=== PATIENT | female | born 1945 | race Caucasian/White ===

== ENCOUNTER 2023-01-26 15:06 | Emergency (ER) | payer MEDICARE, OTHER ==
[2023-01-26 16:33] VITALS: BP 148/72; PULSE 98; RESP 16; O2SAT 98
[2023-01-26] MEDS ORDERED: ACETAMINOPHEN 500 MG TAB PO ONE (16:45)
[2023-01-26 17:07] VITALS: TEMP 98.4
[2023-01-26] MEDS ORDERED: MELO7.5T7 PO (17:32)
[2023-01-26] MEDS ORDERED: TRAM50TA2 PO (17:32)
== END 2023-01-26 17:38 | disposition home or self-care (01) ==
LOC: ER 15:06 → EDBD 15:06 → ER 17:38
DX: S83.8X2A Sprain of other specified parts of left knee, initial encounter (principal); S29.012A Strain of muscle and tendon of back wall of thorax, initial encounter; M17.12 Unilateral primary osteoarthritis, left knee; M51.34 Other intervertebral disc degeneration, thoracic region; E78.5 Hyperlipidemia, unspecified; V43.52XA Car driver injured in collision with other type car in traffic accident, initial encounter; Y93.89 Activity, other specified; Y92.488 Other paved roadways as the place of occurrence of the external cause; Y99.8 Other external cause status
CPT/HCPCS: 72070; 73562

== ENCOUNTER 2024-12-13 19:14 | Inpatient (IN) | payer OTHER ==
[~2024-12-13] VITALS: Ht 160 cm; Wt 81.3 kg
[~2024-12-13 19:14] MED LIST: HYDR-4902 PO; MELO7.5T7 PO; TRAM50TA2 PO
--- NOTE | 2024-12-13 20:22 | ED.PDOC ---
Musculoskeletal HPI Comments 79 y/o obese F, with a history of arthritis - on Gabapentin, presents with c/c of bilateral lower leg swelling and rash, with associated redness, itchiness, and mild pain. Swelling is reported to be ongoing for 2x weeks, with remaining symptoms ensuing, yesterday. Denial of any further acute symptoms. No reported recent exposure to any known allergens. No recent ailments, sick contact, injuries, or additional pertinent medical, surgical, social, or family history. Chief Complaint: Lower Extremity Time Seen by MD: 19:45 Reviewed Notes: Nurses Notes, Medications, Allergies Allergies: Coded Allergies: Codeine (Verified Allergy, Unknown, 06/01/23) Sulfa Antibiotics (Verified Allergy, Unknown, 06/01/23) Home Meds Active Scripts Hydrocodone-Acetaminophen (Hydrocodone Bitartrate/AC 5-325 mg) 1 Tab Tab, 1 TAB PO Q6HPRN PRN, #15 TAB Prov:OLINDA AMEZCUA PAC 06/01/23 Tramadol Hcl (Tramadol Hcl) 50 Mg Tab, 50 MG PO BID, #20 TAB Prov:SADIA STACY 01/26/23 Meloxicam (Meloxicam) 7.5 Mg Tab, 1 TAB PO BID, #30 TAB 1 Refill Prov:SADIA STACY 01/26/23 Information Source: Patient Mode of Arrival: Ambulatory Location: Bilateral Past Medical History PAST MEDICAL HISTORY: Arthritis, High Lipids Surgical History: Denies all surgeries RN REGISTRY History: No Pertinent RN REGISTRY History Family History Family History: Reviewed,noncontributory to illness Social History Smoker: Non-Smoker Alcohol: Denies ETOH Use Drugs: Denies Drug Use Lives In: Home All Other Systems: Reviewed and Negative (Comprehensive systems review obtained and negative except for what is stated in the HPI.) Physical Exam General Appearance: Moderate Distress HEENT: Normal ENT Inspection, Pharynx Normal, TMs Normal Neck: Full Range of Motion, Non-Tender, Normal, Normal Inspection Respiratory: Chest Non-Tender, Lungs Clear, No Accessory Muscle Use, No Respiratory Distress, Normal Breath Sounds Cardiovascular: No Edema, No JVD, No Murmur, No Gallop, Normal Peripheral Pulses, Regular Rate/Rhythm Breast Exam: Deferred Gastrointestinal: No Organomegaly, Non Tender, No Pulsatile Mass, Normal Bowel Sounds, Soft Genitalia: Deferred Pelvic: Deferred Rectal: Deferred Extremities: No calf tenderness, Normal capillary refill, Normal range of motion, Non-tender, No pedal edema, Swelling (Bilateral lower extremity) Musculoskeletal : Apperance: Normal Neurologic: Alert, dag sprayer II-XII nml as Tested, No Motor Deficits, Normal Affect, Normal Mood, No Sensory Deficits Cerebellar Function: NOT DONE Reflexes: NOT DONE Skin: Dry, Normal Color, Warm Peripheral Pulses: 3+ Radial (R), 3+ Radial (L) Lymphatic: No Adenopathy Was a procedure done? Was a procedure done?: No Differential Diagnosis EXT Differential Diagnosis: Cellulitis, CHF, Deep Vein Thrombosis, Sprain, Gout, Strain, Rheumatoid, Neurovascular injury, Arthritis X-Ray, Labs, Meds, VS Vital Signs Date Time Temp Pulse Resp B/P (MAP) Pulse Ox O2 Delivery O2 Flow Rate FiO2 12/14/24 01:00 98.3 74 12 149/74 (99) 97 98.3 12/13/24 21:39 83 16 97 Room Air* 0 21 12/13/24 21:39 98.7 83 16 141/96 (111) 97 98.7 12/13/24 19:24 99.0 84 20 133/96 95 99.0 Lab Test 12/13/24 21:17 Range/Units White Blood Count 4.8 4.4-10.8 10^3/uL Red Blood Count 4.32 4.0-5.20 10^6/uL Hemoglobin 11.8 L 12.2-16.2 g/dL Hematocrit 36.4 36.0-46.0 % Mean Corpuscular Volume 84.3 80.0-100.0 fL Mean Corpuscular Hemoglobin 27.4 L 28.0-32.0 pg Mean Corpuscular Hemoglobin Concent 32.5 32.0-36.0 g/dL Red Cell Distribution Width 15.5 H 11.8-14.3 % Platelet Count 177 140-450 10^3/uL Mean Platelet Volume 8.5 6.9-10.8 fL Neutrophils (%) (Auto) 67.9 37.0-80.0 % Lymphocytes (%) (Auto) 19.1 10.0-50.0 % Monocytes (%) (Auto) 6.3 0.0-12.0 % Eosinophils (%) (Auto) 6.3 0.0-7.0 % Basophils (%) (Auto) 0.4 0.0-2.0 % Neutrophils # (Auto) 3.3 1.6-8.6 10 ^3/uL Lymphocytes # (Auto) 0.9 0.4-5.4 10 ^3/uL Monocytes # (Auto) 0.3 0-1.3 10 ^3/uL Eosinophils # (Auto) 0.3 0-0.8 10 ^3/uL Basophils # (Auto) 0 0-0.2 10 ^3/uL Nucleated Red Blood Cells 0.0 % Sodium Level 144 136-145 mmol/L Potassium Level 4.6 3.5-5.1 mmol/L Chloride Level 108 H 98-107 mmol/L Carbon Dioxide Level 26 20-31 mmol/L Anion Gap 10 5-15 Blood Urea Nitrogen 25 H 9-23 mg/dL Creatinine 1.40 H 0.550-1.02 mg/dL Glomerular Filtration Rate Calc 38 >90 mL/min BUN/Creatinine Ratio 17.9 10.0-20.0 Serum Glucose 85 74-106 mg/dL Calcium Level 9.0 8.7-10.4 mg/dL Current Medications Medications (Trade) Dose Ordered Sig/Shelton Route Start Time Stop Time Status Last Admin Ceftriaxone Sodium 50 ml @ 100 mls/hr ONCE ONCE IV 12/13/24 20:30 12/13/24 20:59 DC 12/13/24 22:01 Clindamycin Phosphate 50 ml @ 50 mls/hr ONCE ONCE IV 12/13/24 20:30 12/13/24 21:29 DC 12/13/24 22:52 [place] [id number] Ph: [phone] DIAGNOSTIC IMAGING Diagnostic Imaging Report : [id number] Signed PATIENT: TAMIA CRAIG ACCT: [id number] UNIT: [id number] : 1945 LOC: ER ROOM / BED: / AGE / SEX: 79 / F ADM STATUS: REG ER SERVICE 27 ORDERING PHYSICIAN: LOYD BROOKS MD PROCEDURE(s): BLDVT - BiLat Lower DVT REASON: dvt ORDER NUMBER(s): [id number], ACCESSION NUMBER(s): [id number] Procedure: US BiLat Lower DVT Study Date and Requested Time: 12/13/2024 08:55 PM History: dvt Comparison: None Technique: Multiple high resolution rendon-scale images with and without compression obtained of the bilateral lower extremity veins, including the common femoral vein, deep femoral vein, proximal mid and distal superficial fem oral vein, and popliteal vein. Additional limited images of the greater saphenous vein also obtained. Augmentation performed as indicated. Color and spectral doppler flow images obtained as indicated. Findings: No visible intraluminal venous thrombus. No evidence of incompressibility or abnormal color or spectral Doppler flow visualized in the bilateral lower extremity veins including, the common femoral vein, deep femoral vein, proximal mid and distal superficial femoral vein, and popliteal vein. Greater saphenous vein grossly unremarkable. Impression: No sonographic evidence of bilateral lower extremity deep venous thrombosis. ATED BY: RADHA HOLLINS DO DICTATED DATE/TIME: 12/13/242129 SIGNED BY: RADHA HOLLINS DO SIGNED DATE/TIME: 12/13/242129 CC: Patient alert. Vitals stable. Came in because of bilateral lower extremity swelling along with redness. Ambulating. Blood pressure slightly elevated. WBC within normal limits. Cellulitis. Establish intravenous access. Was given Rocephin. Was given clindamycin. Explained to the patient. Continue monitoring. Time of 1ST Reevaluation: 20:15 Reevaluation 1ST: Unchanged Patient Education/Counseling: Diagnosis, Treatment Family Education/Counseling: No Family Present Departure 1 Departure Time of Disposition: 23:26 Impression: Primary Impression: Cellulitis Qualified Codes: L03.119 - Cellulitis of unspecified part of limb Disposition: ADMITTED INPATIENT Admit to: Med Surg Condition: Guarded Critical Care Note Critical Care Time?: No Stability Stability form required: No Heart Score Heart Score: Heart Score Response (Comments) Value History N/A 0 EKG N/A 0 Age N/A 0 Risk Factors N/A 0 Troponin N/A 0 Total 0 I personally scribed for LOYD BROOKS MD ([email or web address]) on 12/13/24 at 20:22. Electronically submitted by Stiven Ulloa ([email or web address]). I personally scribed for LOYD BROOKS MD ([email or web address]) on 12/14/24 at 02:43. Electronically submitted by Stiven Ulloa ([email or web address]). LOYD BROOKS MD Dec 13, 2024 20:22
--- NOTE | 2024-12-13 21:32 | DVH ---
Procedure: US BiLat Lower DVT Study Date and Requested Time: 12/13/2024 08:55 PM History: dvt Comparison: None Technique: Multiple high resolution rendon-scale images with and without compression obtained of the bi lateral lower extremity veins, including the common femoral vein, deep femoral vein, proximal mid and distal superficial femoral vein, and popliteal vein. Additional limited images of the greater saphen ous vein also obtained. Augmentation performed as indicated. Color and spectral doppler flow images o btained as indicated. Findings: No visible intraluminal venous thrombus. No evidence of incompressibility or abnormal color or spectr al Doppler flow visualized in the bilateral lower extremity veins including, the common femoral vein, deep femoral vein, proximal mid and distal superficial femoral vein, and popliteal vein. Greater sap henous vein grossly unremarkable. Impression: No sonographic evidence of bilateral lower extremity deep venous thrombosis.
[2024-12-13 21:39] VITALS: PULSE 83; RESP 16; O2SAT 97
[2024-12-13 21:47] LABS: Hematocrit 36.4 % (36.0-46.0); Hemoglobin 11.8 g/dL (12.2-16.2); Mean Corpuscular Hemoglobin 27.4 pg (28.0-32.0); Mean Corpuscular Volume 84.3 fL (80.0-100.0); Nucleated Red Blood Cells % 0.0 %
[2024-12-13 21:50] LABS: Potassium 4.6 mmol/L (3.5-5.1); Sodium 144 mmol/L (136-145)
[2024-12-13 21:51] LABS: Anion Gap 10 (5-15); Calcium 9.0 mg/dL (8.7-10.4); Carbon Dioxide 26 mmol/L (20-31)
[2024-12-13 21:52] LABS: Chloride 108 mmol/L (98-107)
[2024-12-13 21:56] LABS: BUN/Creatinine Ratio 17.9 (10.0-20.0); Blood Urea Nitrogen 25 mg/dL (9-23); Glucose 85 mg/dL (74-106)
[2024-12-13] MEDS: CLINDAMYCIN 300MG IV 50 ML IV ONE (22:52)
[2024-12-14] VITALS (8 sets, daily range): BP systolic 104–160; BP diastolic 55–78; PULSE 69–98; RESP 13–20; TEMP 97.5–98.4; O2SAT 96–99
[2024-12-14] MEDS ORDERED: MORPHINE SULFATE INJ 2 MG/ml SYRG IV PRN ×2 (03:45→04:00)
[2024-12-14] MEDS ORDERED: ACETAMINOPHEN 325 MG TAB PO PRN (03:45)
--- NOTE | 2024-12-14 03:57 | DVHHPRES ---
History of Present Illness Resident Creating Document: REJI VANCE History of Present Illness Shaniqua Recio this is a 79-year-old female patient who presents to ED with chief complaint of bilateral lower limb itchiness (right greater than left) which started approximately 48 hours ago. Patient also reports bilateral lower limb extremity swelling and hardening for the past two weeks which improves while lying flat associated with intermittent dyspnea in variable functional class. Denies any other associated symptoms, including chest pain, palpitation and syncope. Past medical history: Bilateral lower limb polyneuropathy Surgical history: Bilateral knee surgery, cholecystectomy, left femur paolo placement Family history: Heart disease in father Social history: Lives in [place] with a friend (has no next of kin). Denies current tobacco, alcohol and other drug abuse Allergies: Codeine and sulfa antibiotics Home medication: Gabapentin Patient seen and examined at bedside. Currently still presents intense pruritus in lower limbs especially right side. Patient admitted for further management. Past Medical History Per HPI Past Surgical History Per HPI Family History Per HPI Past Social History Per HPI Review of Systems Review of Systems Per HPI Allergies: Coded Allergies: Codeine (Verified Allergy, Unknown, 06/01/23) Sulfa Antibiotics (Verified Allergy, Unknown, 06/01/23) Exam Vital Signs Vital Signs Date Time Temp Pulse Resp B/P (MAP) Pulse Ox O2 Delivery O2 Flow Rate FiO2 12/14/24 01:00 98.3 74 12 149/74 (99) 97 98.3 12/13/24 21:39 Room Air* 0 21 Exam Patient lying in bed, in mild acute distress General: Lucid, afebrile, mucosae are moist Cardiovascular: Normal S1 and S2. Systolic early peaking crescendo decrescendo murmur best heard in aortic foci intensity 2/6. No gallops or rubs Respiratory: Normal ventilation mechanics. Clear lung sounds on auscultation Abdomen: Soft, nontender, no organomegaly, normal bowel sounds MSK/skin: Mobilizes 4 limbs. Skin is dry and warm. Bilateral infrapatellar pitting edema right greater than left, associated with erythema and excoriations in bilateral legs. Neurological: Oriented in 3 spheres. No motor no sensitive deficits. Pupils are isocoric and reactive Labs/Xrays Labs Test 12/13/24 21:17 Range/Units White Blood Count 4.8 4.4-10.8 10^3/uL Red Blood Count 4.32 4.0-5.20 10^6/uL Hemoglobin 11.8 L 12.2-16.2 g/dL Hematocrit 36.4 36.0-46.0 % Mean Corpuscular Volume 84.3 80.0-100.0 fL Mean Corpuscular Hemoglobin 27.4 L 28.0-32.0 pg Mean Corpuscular Hemoglobin Concent 32.5 32.0-36.0 g/dL Red Cell Distribution Width 15.5 H 11.8-14.3 % Platelet Count 177 140-450 10^3/uL Mean Platelet Volume 8.5 6.9-10.8 fL Neutrophils (%) (Auto) 67.9 37.0-80.0 % Lymphocytes (%) (Auto) 19.1 10.0-50.0 % Monocytes (%) (Auto) 6.3 0.0-12.0 % Eosinophils (%) (Auto) 6.3 0.0-7.0 % Basophils (%) (Auto) 0.4 0.0-2.0 % Neutrophils # (Auto) 3.3 1.6-8.6 10 ^3/uL Lymphocytes # (Auto) 0.9 0.4-5.4 10 ^3/uL Monocytes # (Auto) 0.3 0-1.3 10 ^3/uL Eosinophils # (Auto) 0.3 0-0.8 10 ^3/uL Basophils # (Auto) 0 0-0.2 10 ^3/uL Nucleated Red Blood Cells 0.0 % Sodium Level 144 136-145 mmol/L Potassium Level 4.6 3.5-5.1 mmol/L Chloride Level 108 H 98-107 mmol/L Carbon Dioxide Level 26 20-31 mmol/L Anion Gap 10 5-15 Blood Urea Nitrogen 25 H 9-23 mg/dL Creatinine 1.40 H 0.550-1.02 mg/dL Glomerular Filtration Rate Calc 38 >90 mL/min BUN/Creatinine Ratio 17.9 10.0-20.0 Serum Glucose 85 74-106 mg/dL Calcium Level 9.0 8.7-10.4 mg/dL SEPSIS Sepsis Screen Date sepsis recognized/suspect: Dec 13, 2024 Time Sepsis recognized/suspect: 2138 Recent Procedure: No On Antibiotic Therapy: No Respiratory Rate >20: No Heart Rate >90: No Temp<36 C (96.8 F) or >38.3 C: No SBP <90 or MAP <65 mmHG: No New Acute Mental Status Change: No Is the patient on CPAP, BIPAP,: No Physician Orders Bilat Lower Dvt (12/13/24 20:28) Urinalysis (12/13/24 20:28) Admit (12/14/24 03:35) Code Status (12/14/24 03:35) Echo 2d Mode Cardiac Dop (12/14/24 03:35) Oxygen By Nasal Cannula (12/14/24 03:35) Vital Signs Date Time Temp Pulse Resp B/P (MAP) Pulse Ox O2 Delivery O2 Flow Rate FiO2 12/14/24 01:00 98.3 74 12 149/74 (99) 97 98.3 12/13/24 21:39 83 16 97 Room Air* 0 21 12/13/24 21:39 98.7 83 16 141/96 (111) 97 98.7 Laboratory Tests Test 12/13/24 21:17 White Blood Count 4.8 10^3/uL (4.4-10.8) Medications Medications Dose Ordered Sig/Shelton Route Start Time Stop Time Status Last Admin Dose Admin Ceftriaxone Sodium 50 ml @ 100 mls/hr ONCE ONCE IV 12/13/24 20:30 12/13/24 20:59 DC 12/13/24 22:01 100 MLS/HR Clindamycin Phosphate 50 ml @ 50 mls/hr ONCE ONCE IV 12/13/24 20:30 12/13/24 21:29 DC 12/13/24 22:52 50 MLS/HR Assessment/Plan Assessment/Plan ASSESSMENT Bilateral lower limb cellulitis Probable acute on newly diagnosed congestive heart failure (pending LVEF) Probable aortic valvulopathy OJI hemodynamically mediated (VMN) Ruled out DVT Polyneuropathy History of bilateral knee repair PLAN We will admit for med surge to continue IV antibiotics (clindamycin) Due to pruritus indicated Benadryl and methylprednisolone Patient has bilateral limb swelling, ruled out DVT with bilateral lower limb venous ultrasound. Ordered echocardiogram to evaluate aortic valvulopathy and probable newly diagnosed congestive heart failure Indicated 20 mg of IV furosemide. Ordered chest x-ray and BNP Continue gabapentin Goals of care discussed with patient for over 18 minutes: Full code status (patient only wants to be full code as long as she is not in a vegetative state). Discussed plan with Dr. Rodriguez, patient and nurses: Patient will be admitted to [facility]. Currently under empiric IV antibiotic. Managing pruritus with Benad ryl and methylprednisolone. Ordered echocardiogram and BNP to evaluate probable newly diagnosed heart failure with associated aortic valvulopathy. Plan discussed with: Patient, Other (Nurses) My Orders Orders - REJI VANCE RESIDENT Procedure Category Date Status Time Admit ADMIT 12/14/24 Transmitted 03:35 Code Status CODE 12/14/24 Transmitted 03:35 Echo 2d Mode Cardiac US 12/14/24 Logged DOP 03:35 Oxygen By Nasal RT 12/14/24 Transmitted Cannula 03:35 Date of Service: Dec 14, 2024 Billing Provider: MARVIN RODRIGUEZ MD Common Visit Codes: 38219-[id number] INP/OBS CARE (HIGH) Secondary Visit Codes: 95140-HJMTPHQX CARE PLAN 30 MINUTES REJI VANCE RESIDENT Dec 14, 2024 03:57
--- NOTE | 2024-12-14 04:39 | DVH ---
CHEST RADIOGRAPH Indication: aORTIC VALVULOPATHY Technique: Single frontal view of the chest was obtained COMPARISON: None FINDINGS: Lines and Tubes: None Lungs: Clear Pleura: No effusion. No pneumothorax. Cardiomediastinal contours: Cardiomegaly. Bones: Unremarkable IMPRESSION: 1. Cardiomegaly.
[2024-12-14] MEDS: diphenhdrAMINE HCL 50 MG/1 ML VL IV PRN (04:43)
[2024-12-14 05:03] LABS: Hematocrit 34.4 % (36.0-46.0); Hemoglobin 11.1 g/dL (12.2-16.2); Mean Corpuscular Hemoglobin 27.3 pg (28.0-32.0); Mean Corpuscular Volume 84.8 fL (80.0-100.0); Nucleated Red Blood Cells % 0.0 %
[2024-12-14 05:14] LABS: INR 0.97 (0.9-1.15); Partial Thromboplastin Time 29.5 SEC (24.5-34.5); Prothrombin Time 10.3 sec (9.3-11.8)
[2024-12-14 05:19] LABS: Alanine Aminotransferase 10 U/L (7-40); Albumin 3.9 g/dL (3.2-4.8); Alkaline Phosphatase 105 U/L (46-116); Anion Gap 11 (5-15); BUN/Creatinine Ratio 16.2 (10.0-20.0); Carbon Dioxide 22 mmol/L (20-31); Glucose 105 mg/dL (74-106); Magnesium 2.1 mg/dL (1.6-2.6); Potassium 4.0 mmol/L (3.5-5.1); Sodium 143 mmol/L (136-145); Total Protein 6.5 g/dL (5.7-8.2)
[2024-12-14] MEDS: FUROSEMIDE 20 MG/2 ML VIAL IV ONE (05:20)
[2024-12-14 05:24] LABS: Bilirubin, Total 0.2 mg/dL (0.2-1.0); Blood Urea Nitrogen 28 mg/dL (9-23); Calcium 8.6 mg/dL (8.7-10.4); Chloride 110 mmol/L (98-107)
[2024-12-14 05:48] LABS: Triglycerides 123 mg/dL (< 150)
[2024-12-14 05:50] LABS: Cholesterol 140 mg/dL (< 200); HDL Cholesterol 59 mg/dL (40-59)
[2024-12-14 05:51] LABS: Bilirubin, Direct < 0.1 mg/dL (<0.3)
[2024-12-14] MEDS ORDERED: CLINDAMYCIN 600MG IV 50 ML IV SCH (06:00)
[2024-12-14] MEDS: CLINDAMYCIN 600MG IV 50 ML IV SCH (06:28)
[2024-12-14 08:20] LABS: Urine Protein, UAD Negative (Negative)
[2024-12-14 08:36] LABS: Amphetamine Screen, Urine Neg (NEGATIVE); Barbiturate Scree,Urine Neg (NEGATIVE); Benzodiazephine Screen, Urine Neg (NEGATIVE); Cannabinoid Screen, Urine Neg (NEGATIVE); Cocaine Screen, Urine Neg (NEGATIVE); Opiate Scree,Urine Neg (NEGATIVE); Phencyclidine Screen, Urine Neg (NEGATIVE)
[2024-12-14] MEDS: FUROSEMIDE 20 MG/2 ML VIAL IV SCH (08:44)
[2024-12-14] MEDS: methylPREDNISolone SOD SUCC 40 MG/ML VL IV SCH (08:44)
[2024-12-14] MEDS: ENOXAPARIN SOD 40 MG/0.4 ML SYRINGE SC SCH (08:45)
[2024-12-14] MEDS ORDERED: GABA-339 PO (09:25)
[2024-12-14] MEDS ORDERED: OXYC325T14 PO (09:25)
[2024-12-14] MEDS ORDERED: ENOXAPARIN SOD 40 MG/0.4 ML SYRINGE SC SCH (10:00)
[2024-12-14] MEDS: MORPHINE SULFATE 4 MG/ML SYR/VIAL IV PRN (17:03)
[2024-12-15 01:00] VITALS: BP 129/94; PULSE 75; RESP 18; TEMP 97.9; O2SAT 97
[2024-12-15 05:00] VITALS: BP 154/88; PULSE 70; RESP 18; TEMP 98.4; O2SAT 96
[2024-12-15 09:00] VITALS: BP 158/80; PULSE 69; RESP 17; TEMP 97.9; O2SAT 96
--- NOTE | 2024-12-15 09:46 | DVH ---
INDICATION: JOI vs CKD TECHNIQUE: Multiple real-time sonographic images of the kidneys and bladder were obtained. COMPARISON: None FINDINGS: The right kidney measures 8 cm in length, which is small in size. There is increased echoge nicity of the right kidney. No hydronephrosis. The left kidney measures 9 cm in length, which is normal in size. There is normal echogenicity of the left kidney. No hydronephrosis. No large intraluminal masses are seen in the bladder. Prior to voiding the bladder volume measures vo lume 265 cc. Incidentally seen splenomegaly. IMPRESSION: Echogenic bilateral kidneys suggestive of chronic medical renal disease. No hydronephrosis.
--- NOTE | 2024-12-15 14:23 | DVHCONRES ---
Date Seen: Dec 15, 2024 Resident Creating Document: AGNES GALLARDO RESIDENT Referring Physician MD Dlyon Reason for Consultation JOI History of Present Illness This is a 79-year-old female with past medical history of bilateral lower limb polyneuropathy, status post bilateral knee replacement, left femur ruled placement presented to the ED with a chief complaint of bilateral lower limb itchiness which started approximately 48 hours ago. patient reports bilateral lower extremities swelling and hardening for past 2 weeks which improves when lying flat and associated with intermittent dyspnea in variable functional class. She denies chest pain, palpitation, dizziness, abdominal pain, nausea, vomiting or any change in bowel and bladder habit. patient was seen and examined on the bedside. She is alert oriented x3. complaint of bilateral lower extremity itchiness and redness. Past Medical History bilateral lower limb polyneuropathy, CKD Past Surgical History status post bilateral knee replacement, left femur paolo placement, cholecystectomy Family History: Cardiovascular disease G8 FATHER Allergies: Coded Allergies: Codeine (Verified Allergy, Unknown, 06/01/23) Sulfa Antibiotics (Verified Allergy, Unknown, 06/01/23) Home Meds Active Scripts Doxycycline (Monohydrate) (Doxycycline) 100 Mg Tab, 100 MG PO BID for 7 Days, #14 TAB 0 Refills Prov:MARGO HOOKS DO 12/15/24 Amoxicillin Trihydrate (Amoxicillin) 500 Mg Tab, 1 TAB PO TID for 7 Days, #21 TAB 0 Refills Prov:MARGO HOOKS DO 12/15/24 Reported Medications Oxycodone W/ Acetaminophen (Apap/Oxycodone) 1 Tab Tab, 1 TAB PO Q4HR, #180 TAB 12/14/24 Gabapentin (Gabapentin) 600 Mg Tab, 1 TAB PO Q8H 12/14/24 Discontinued Scripts Meloxicam (Meloxicam) 7.5 Mg Tab, 1 TAB PO BID, #30 TAB 1 Refill Prov:SADIA STACY 01/26/23 Current Medications Current Medications Medications (Trade) Dose Ordered Sig/[place] Route PRN Reason Start Time Stop Time Status Last Admin Morphine Sulfate 2 mg Q4HPRN PRN IV SEVERE PAIN (7-10 PAIN SCALE) 12/14/24 17:00 12/14/24 23:08 Lorazepam (Ativan Tablet) 1 mg Q12HP PRN PO ANXIETY 12/15/24 08:45 Review of Systems Constitutional: No: Fever, Chills, Sweats, Weakness, Malaise, Other Eyes: No: Pain, Vision change, Conjunctivae inflammation, Eyelid inflammation, Other, Redness ENT: No: Ear pain, Ear discharge, Nose pain, Nose discharge, Nose congestion, Mouth pain, Mouth swelling, Throat pain, Throat swelling, Other Respiratory: Shortness of breath, improving No: Cough, Dry,Wheezing, Hemoptysis, Pleuritic Pain, Sputum, Wheezing, Other Cardiovascular: No: Chest Pain, Palpitations, Orthopnea, Paroxysmal Noc. Dyspnea, Edema, Lt Headedness, Other Gastrointestinal: No: Nausea, Vomiting, Abdominal Pain, Diarrhea, Constipation, Melena, Hematochezia, Other Musculoskeletal: No: other, neck pain, shoulder pain, arm pain, back pain, hand pain, leg pain, foot pain Neurological:; No: Weakness, Numbness, Incoordination, Change in speech, Confusion, Seizures Vital Signs Vital Signs Date Time Temp Pulse Resp B/P (MAP) Pulse Ox O2 Delivery O2 Flow Rate FiO2 12/15/24 09:21 158/80 12/15/24 08:15 Room Air* 0 21 12/15/24 07:30 68 18 12/15/24 05:00 98.4 96 98.4 Physical Exam Physical examination: General Appearance: Alert, Oriented X3, Cooperative, No acute distress HEENT: Atraumatic, PERRLA, EOMI, Mucous membrane moist/pink Respiratory: Clear to auscultation, Normal air movement Cardiovascular: Regular rate, Normal S1, Normal S2, No murmurs, no chest wall tenderness Abdominal: Normal bowel sounds, Soft, No tenderness, No hepatospenomegaly, No masses Extremities: Scratchy ernst in the lower extremity, No clubbing, No cyanosis, No edema, Normal pulses, No tenderness/swelling Skin: No rashes, No breakdown, No significant lesion Neuro: Normal gait, Normal speech, Strength at 5/5 X4 ext, Normal tone, Sensation intact, Cranial nerves 3-12 NL, Reflexes 2+ Psych/Mental Status: Mental status NL, Mood NL Labs/Diagnostic Data Labs Test 12/15/24 13:01 12/14/24 07:52 12/14/24 04:30 12/13/24 21:17 Range/Units Parathyroid Hormone (Intact) 261.3 H 18.4-80.1 pg/mL Urine Color Light-yellow Yellow Urine Clarity Clear Clear Urine pH 6.5 5.0-9.0 Urine Specific [place] 1.012 1.001-1.035 Urine Protein Negative Negative Urine Ketones Negative Negative Urine Blood Negative Negative /uL Urine Nitrite Negative Negative Urine Bilirubin Negative Negative Urine Urobilinogen Normal Negative mg/dL Urine Leukocyte Esterase Negative Negative /uL Urine RBC <1 0 - 4 /hpf Urine Microscopic WBC < 1 0-5 /HPF Urine Squamous Epithelial Cells None seen <5 /hpf Urine Bacteria Few H None Seen /hpf Urine Glucose Normal Normal mg/dL Urine Opiates Screen Neg NEGATIVE Urine Fentanyl Screen Neg NEGATIVE Urine Barbiturates Screen Neg NEGATIVE Urine Phencyclidine Screen Neg NEGATIVE Urine Amphetamines Screen Neg NEGATIVE Urine Benzodiazepines Screen Neg NEGATIVE Urine Cocaine Screen Neg NEGATIVE Urine Cannabinoids Screen Neg NEGATIVE White Blood Count 3.5 #L 4.4-10.8 10^3/uL Red Blood Count 4.06 4.0-5.20 10^6/uL Hemoglobin 11.1 L 12.2-16.2 g/dL Hematocrit 34.4 L 36.0-46.0 % Mean Corpuscular Volume 84.8 80.0-100.0 fL Mean Corpuscular Hemoglobin 27.3 L 28.0-32.0 pg Mean Corpuscular Hemoglobin Concent 32.2 32.0-36.0 g/dL Red Cell Distribution Width 15.9 H 11.8-14.3 % Platelet Count 153 140-450 10^3/uL Mean Platelet Volume 8.6 6.9-10.8 fL Neutrophils (%) (Auto) 65.4 37.0-80.0 % Lymphocytes (%) (Auto) 20.7 10.0-50.0 % Monocytes (%) (Auto) 7.2 0.0-12.0 % Eosinophils (%) (Auto) 6.3 0.0-7.0 % Basophils (%) (Auto) 0.4 0.0-2.0 % Neutrophils # (Auto) 2.3 1.6-8.6 10 ^3/uL Lymphocytes # (Auto) 0.7 0.4-5.4 10 ^3/uL Monocytes # (Auto) 0.3 0-1.3 10 ^3/uL Eosinophils # (Auto) 0.2 0-0.8 10 ^3/uL Basophils # (Auto) 0 0-0.2 10 ^3/uL Nucleated Red Blood Cells 0.0 % Prothrombin Time 10.3 9.3-11.8 sec Prothrombin Time INR 0.97 0.9-1.15 Activated Partial Thromboplast Time 29.5 24.5-34.5 SEC Sodium Level 143 136-145 mmol/L Potassium Level 4.0 3.5-5.1 mmol/L Chloride Level 110 H 98-107 mmol/L Carbon Dioxide Level 22 20-31 mmol/L Anion Gap 11 5-15 Blood Urea Nitrogen 28 H 9-23 mg/dL Creatinine 1.73 H 0.550-1.02 mg/dL Glomerular Filtration Rate Calc 30 >90 mL/min BUN/Creatinine Ratio 16.2 10.0-20.0 Serum Glucose 105 74-106 mg/dL Hemoglobin A1c 5.5 <5.7 % A1C Lactic Acid Level 0.6 0.4-2.0 mmol/L Calcium Level 8.6 L 8.7-10.4 mg/dL Phosphorus Level 3.6 2.4-5.1 mg/dL Magnesium Level 2.1 1.6-2.6 mg/dL Total Bilirubin 0.2 0.2-1.0 mg/dL Direct Bilirubin < 0.1 <0.3 mg/dL Aspartate Amino Transferase (AST) 17 13-40 U/L Alanine Aminotransferase (ALT) 10 7-40 U/L Alkaline Phosphatase 105 46-116 U/L B-Type Natriuretic Peptide 106.03 0-100 pg/mL Total Protein 6.5 5.7-8.2 g/dL Albumin 3.9 3.2-4.8 g/dL Triglycerides Level 123 < 150 mg/dL Cholesterol Level 140 < 200 mg/dL LDL Cholesterol 72 < 100 mg/dL HDL Cholesterol 59 40-59 mg/dL Thyroid Stimulating Hormone (TSH) 1.42 0.55-4.78 uIU/mL Vitamin B12 Level 360 211-911 pg/mL Vitamin D 25-Hydroxy 16.7 L 30.0-100 ng/mL Assessment Assessment and plan # JOI likely hemodynamically mediated superimposed on CKD # 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 # Vitamin-D deficiency and elevated PTH secondary to CKD # osteoarthritis, status post bilateral knee replacement # chronic systolic versus diastolic heart failure # Pruritus in the lower extremity likely secondary to Xerosis # Anemia of chronic disease Plan: - Worsening kidney function - Pending urine sodium, creatinine, protein/ creatinine ratio to calculate FENA - U/S of the kidney demonstrated bilateral echogenic kidneys suggestive of chronic medical renal disease without any hydronephrosis - Pending echo - Avoid NSAIDs and other nephrotoxic medication - Monitor BMP Patient seen and examined by myself today in rounds with the medicine resident, I agree with her assessment and plan Total care time 45 minutes Thank you so much for the opportunity to consult on your patient. team will follow the patient. In case of any questions or concerns please feel free to reach out. Plan discussed with . The patient and caregiver team agreed to the plan. Plan discussed with: Patient, Other AGNES GALLARDO Dec 15, 2024 14:23 FER DAS MD Dec 16, 2024 11:53
[2024-12-15] MEDS: LORazepam 0.5 MG TAB PO PRN (14:40)
[2024-12-15 17:00] VITALS: BP 177/82; PULSE 83; RESP 18; TEMP 97.9; O2SAT 97
[2024-12-15] MEDS ORDERED: AMOX500T3 PO (18:18)
[2024-12-15] MEDS ORDERED: DOXY-346 PO (18:20)
[2024-12-15 21:00] VITALS: BP 144/94; PULSE 77; RESP 18; TEMP 98; O2SAT 98
[2024-12-15] MEDS: ACETAMINOPHEN 325 MG TAB PO PRN (23:04)
[2024-12-16 01:00] VITALS: BP 152/88; PULSE 59; RESP 18; TEMP 98; O2SAT 98
[2024-12-16 05:00] VITALS: BP 130/70; PULSE 64; RESP 19; TEMP 97.8; O2SAT 97
[2024-12-16 07:05] LABS: Anion Gap 12 (5-15); Calcium 9.2 mg/dL (8.7-10.4); Carbon Dioxide 23 mmol/L (20-31); Chloride 104 mmol/L (98-107); Potassium 4.6 mmol/L (3.5-5.1); Sodium 139 mmol/L (136-145)
[2024-12-16 07:11] LABS: BUN/Creatinine Ratio 31.4 (10.0-20.0)
[2024-12-16 07:12] LABS: Blood Urea Nitrogen 44 mg/dL (9-23); Glucose 124 mg/dL (74-106)
--- NOTE | 2024-12-16 10:19 | DVHSR ---
APPROVED REPORT EXAM: Two-dimensional and M-mode echocardiogram with Doppler and color Doppler. Blood Pressure: 154/154 mmHg INDICATION bilateral lower limb swelling RISK FACTORS Height: 5'3, Weight: 171 DIMENSIONS LVDd3.5 (3.8-5.7cm)LA (2D)4.1 (1.9-4.0cm)Aortic Root3.3 (2.0-3.7cm) LVDs2.7 (2.5-4.0cm)LA (MM) (1.9-4.0cm)Aortic Cusp Exc1.7 (1.5-2.0cm) EF (%) 55.0 (55-70%)Rt. Atrium2.3 (1.9-4.0cm)Asc. Aorta3.5 cm IVSd1.2 (0.7-1.1cm)RV (D)3.3 (1.8-2.4cm) PWd0.9 (0.7-1.1cm) Mitral Valve MitralMitral Stenosis E wave0.67m/sMV Mean GR.mmHg A wave1.13m/sMV Peak GR.95mmHg E/A ratio0.62D MVAcm2 DECEL [id number] 1/2 [place] Aortic Valve Aortic ValveAortic Stenosis V11.50m/Prema Mean GR.8mmHg V21.62m/Prema Peak GR.10mmHg LVOT Diameter2.0 (1.8-2.4cm)Doppler AVA2.91cm2 Conclusion NORMAL LV EF IS 65% NRMAL VALVES NORMAL RV FUNCTION NO EFFUSION
--- NOTE | 2024-12-16 11:55 | DVHPN2 ---
Progress Note Date Seen: Dec 16, 2024 Medical Necessity Reason Pt with a Central, PICC or Fol: No Subjective Patient reports: No new complaints Other Systems: Patient seen and examined by myself today in follow-up Objective vital signs Vital Sign Date Time Temp Pulse Resp B/P (MAP) Pulse Ox O2 Delivery O2 Flow Rate FiO2 12/16/24 08:00 Room Air* 0 21 12/16/24 05:00 97.8 64 19 130/70 (90) 97 97.8 Total Intake and Output 12/15/24 12/15/24 12/16/24 15:00 23:00 07:00 Intake Total 1240 ml 1010 ml 0 ml Balance 1240 ml 1010 ml 0 ml Examination: LUNGS:Normal, CVS:Normal, MSK:Normal laboratory and microbiology Laboratory Tests 12/16/24 06:00 12/14/24 04:30 Test 12/16/24 06:00 Range/Units Serum Glucose 124 H 74-106 mg/dL Problem List/Assessment/Plan Problem List/Assessment/Plan JOI likely hemodynamically mediated superimposed on CKD NSAID induced chronic kidney disease Vitamin-D deficiency Secondary hyperparathyroidism Osteoarthritis Pruritus in the lower extremity likely secondary to Xerosis Anemia of chronic disease Recommendation Kidney function is improving Increased urine output I discussed with the patient avoid all forms of NSAIDs use Tylenol Arthritis p.r.n. Skin lotions for dry skin Please refer patient to my office two weeks after discharge for Chronic Kidney Disease follow-up Total care time 20 minutes Plan discussed with: Patient FER DAS MD Dec 16, 2024 11:55
--- NOTE | 2024-12-21 16:05 | DVHDS2 ---
Discharge Summary Date of Admission Dec 14, 2024 at 03:35 Date of Discharge: Dec 15, 2024 Labs/Diagnostic Data: Laboratory Results Test 12/16/24 06:00 12/15/24 13:01 12/14/24 07:52 12/14/24 04:30 Sodium Level 139 mmol/L (136-145) Potassium Level 4.6 mmol/L (3.5-5.1) Chloride Level 104 mmol/L (98-107) Carbon Dioxide Level 23 mmol/L (20-31) Anion Gap 12 (5-15) Blood Urea Nitrogen 44 mg/dL (9-23) Creatinine 1.40 mg/dL (0.550-1.02) Glomerular Filtration Rate Calc 38 mL/min (>90) BUN/Creatinine Ratio 31.4 (10.0-20.0) Serum Glucose 124 mg/dL (74-106) Calcium Level 9.2 mg/dL (8.7-10.4) Parathyroid Hormone (Intact) 261.3 pg/mL (18.4-80.1) Urine Color Light-yellow (Yellow) Urine Clarity Clear (Clear) Urine pH 6.5 (5.0-9.0) Urine Specific [place] 1.012 (1.001-1.035) Urine Protein Negative (Negative) Urine Ketones Negative (Negative) Urine Blood Negative /uL (Negative) Urine Nitrite Negative (Negative) Urine Bilirubin Negative (Negative) Urine Urobilinogen Normal mg/dL (Negative) Urine Leukocyte Esterase Negative /uL (Negative) Urine RBC <1 /hpf (0 - 4) Urine Microscopic WBC < 1 /HPF (0-5) Urine Squamous Epithelial Cells None seen /hpf (<5) Urine Bacteria Few /hpf (None Seen) Urine Glucose Normal mg/dL (Normal) Urine Opiates Screen Neg (NEGATIVE) Urine Fentanyl Screen Neg (NEGATIVE) Urine Barbiturates Screen Neg (NEGATIVE) Urine Phencyclidine Screen Neg (NEGATIVE) Urine Amphetamines Screen Neg (NEGATIVE) Urine Benzodiazepines Screen Neg (NEGATIVE) Urine Cocaine Screen Neg (NEGATIVE) Urine Cannabinoids Screen Neg (NEGATIVE) White Blood Count 3.5 10^3/uL (4.4-10.8) Red Blood Count 4.06 10^6/uL (4.0-5.20) Hemoglobin 11.1 g/dL (12.2-16.2) Hematocrit 34.4 % (36.0-46.0) Mean Corpuscular Volume 84.8 fL (80.0-100.0) Mean Corpuscular Hemoglobin 27.3 pg (28.0-32.0) Mean Corpuscular Hemoglobin Concent 32.2 g/dL (32.0-36.0) Red Cell Distribution Width 15.9 % (11.8-14.3) Platelet Count 153 10^3/uL (140-450) Mean Platelet Volume 8.6 fL (6.9-10.8) Neutrophils (%) (Auto) 65.4 % (37.0-80.0) Lymphocytes (%) (Auto) 20.7 % (10.0-50.0) Monocytes (%) (Auto) 7.2 % (0.0-12.0) Eosinophils (%) (Auto) 6.3 % (0.0-7.0) Basophils (%) (Auto) 0.4 % (0.0-2.0) Neutrophils # (Auto) 2.3 10 ^3/uL (1.6-8.6) Lymphocytes # (Auto) 0.7 10 ^3/uL (0.4-5.4) Monocytes # (Auto) 0.3 10 ^3/uL (0-1.3) Eosinophils # (Auto) 0.2 10 ^3/uL (0-0.8) Basophils # (Auto) 0 10 ^3/uL (0-0.2) Nucleated Red Blood Cells 0.0 % Prothrombin Time 10.3 sec (9.3-11.8) Prothrombin Time INR 0.97 (0.9-1.15) Activated Partial Thromboplast Time 29.5 SEC (24.5-34.5) Hemoglobin A1c 5.5 % A1C (<5.7) Lactic Acid Level 0.6 mmol/L (0.4-2.0) Phosphorus Level 3.6 mg/dL (2.4-5.1) Magnesium Level 2.1 mg/dL (1.6-2.6) Total Bilirubin 0.2 mg/dL (0.2-1.0) Direct Bilirubin < 0.1 mg/dL (<0.3) Aspartate Amino Transferase (AST) 17 U/L (13-40) Alanine Aminotransferase (ALT) 10 U/L (7-40) Alkaline Phosphatase 105 U/L (46-116) B-Type Natriuretic Peptide 106.03 pg/mL (0-100) Total Protein 6.5 g/dL (5.7-8.2) Albumin 3.9 g/dL (3.2-4.8) Triglycerides Level 123 mg/dL (< 150) Cholesterol Level 140 mg/dL (< 200) LDL Cholesterol 72 mg/dL (< 100) HDL Cholesterol 59 mg/dL (40-59) Thyroid Stimulating Hormone (TSH) 1.42 uIU/mL (0.55-4.78) Test 12/13/24 21:17 Vitamin B12 Level 360 pg/mL (211-911) Vitamin D 25-Hydroxy 16.7 ng/mL (30.0-100) Other Laboratory Tests 12/16/24 06:00 12/14/24 04:30 Brief Hx & Hospital Course: Patient is a 79-year-old female who presented with complaints of bilateral lower limb itchiness that started 2 days prior. Patient underwent lower extremity ultrasound venous bilaterally which was negative for DVT. Clinical examination revealed erythematous bilateral extremities on the anterior portion of the lower extremities. Patient was treated for cellulitis with clindamycin. Her erythema significantly improved the following day. She was discharged on amoxicillin and doxycycline for an additional 5 days. Of note, patient was noted to have decreased GFR of 38. Creatinine remained stable around 1.4 during hospitalization. Ultrasound of the kidneys was consistent with chronic kidney disease. Patient was seen by nephrology. It was noted that she was taking significant amount of NSAIDs which she was recommended to discontinue. Patient is to follow-up with nephrology. Overall, patient was stable for discharge. She has to follow-up with her PCP. [facility] case management arrange follow-up appointments. Condition at Discharge: Good Final Diagnosis/Problems List Cellulitis Secondary Diagnosis: JOI due to NSAID use Discharge Disposition: Home Discharge Instruct/Medications Diet: Regular Activity: No Restrictions, As Tolerated Follow Up/Referral: Follow up with PCP. Medications: Amoxicillin and Doxycycline for 7 days. Scheduled Amoxicillin Trihydrate (Amoxicillin), 1 TAB PO TID Doxycycline (Monohydrate) (Doxycycline), 100 MG PO BID Gabapentin (Gabapentin), 1 TAB PO Q8H, (Reported) Oxycodone W/ Acetaminophen (Apap/Oxycodone), 1 TAB PO Q4HR, (Reported) Discontinued Medications Meloxicam (Meloxicam), 1 TAB PO BID Discharge Statement: "Patient was advised to return to the ER or call 911 if any headaches, dizziness, shortness of breath, chest pain, abdominal pain, bleeding, fevers, or worsening of medical condition. Patient was counseled about treatment plan, medications, possible side effects, patientverbalized understanding. All questions were answered to the best of my ability. This discharge took greater then 30 minutes in planning, reviewing documentation, counseling the patient, and discussing with other team members." ASSESSMENT ASSESSMENT Assessment Cellulitis MARGO HOOKS DO Dec 21, 2024 16:05
== END 2024-12-16 09:07 | disposition home or self-care (01) | DRG 602 ==
LOC: ER 19:14 → OVERFLOW 12-14 03:35 → ER 12-14 03:44 → WEST WING 12-14 21:53
PROVIDERS: ADMIT Student in an Organized Health Care Education/Training Program; ATTEND Student in an Organized Health Care Education/Training Program
DX: L03.115 Cellulitis of right lower limb (principal); N17.0 Acute kidney failure with tubular necrosis; N25.81 Secondary hyperparathyroidism of renal origin; I50.42 Chronic combined systolic (congestive) and diastolic (congestive) heart failure; L29.89 Other pruritus; L03.116 Cellulitis of left lower limb; E66.9 Obesity, unspecified; E55.9 Vitamin D deficiency, unspecified; N18.9 Chronic kidney disease, unspecified; T39.395A Adverse effect of other nonsteroidal anti-inflammatory drugs [NSAID], initial encounter; M19.09 Primary osteoarthritis, other specified site; D63.8 Anemia in other chronic diseases classified elsewhere; G62.9 Polyneuropathy, unspecified; Z96.653 Presence of artificial knee joint, bilateral; Z88.2 Allergy status to sulfonamides; Z68.30 Body mass index [BMI] 30.0-30.9, adult; Z88.5 Allergy status to narcotic agent; Z79.899 Other long term (current) drug therapy; Y92.89 Other specified places as the place of occurrence of the external cause
CPT/HCPCS: 36415; 71045; 76775; 80048; 80061; 80076; 80307; 81001; 82306; 82607; 83036; 83605; 83735; 83880; 83970; 84100; 84443; 85025; 85610; 85730; 93306; 93970; G0378; J3490